=== PATIENT | female | born 1935 | race Two or more races ===

== ENCOUNTER 2025-03-24 11:51 | Inpatient (IN) | payer MEDICARE, OTHER ==
[~2025-03-24] VITALS: Ht 162.6 cm; Wt 74.0 kg
--- NOTE | 2025-03-24 12:16 | ED.PDOC ---
HPI (NEURO) HPI Comments 89y F who presents to the ED via EMS for chief complaint of generalized weakness. Per EMS, pt was called after noticing pt has been having increased weakness and malaise for the past few days. Family has noted pt has also been having increased falls over the past 2 days and pt evaluated. Pt otherwise has noted history of advanced dementia and EMS noted pt is currently taking abx for current UTI. EMS states pt has noted weakness and bruising to the L shoulder and L forearm. Pt in the ED, is otherwise ax0x1 in the ED. Pt denies any other symptoms at this time. Chief Complaint: General Weakness Time Seen by MD: 12:11 Primary Care Provider: CASPER Reviewed Notes: Nurses Notes, Funeral Car Driver Notes, Medications, Allergies (NKDA) Information Source: Patient, Emergency Med Personnel Mode of Arrival: EMS Brought in by: EMS Severity: Moderate Dizziness/Weakness Severity: Does not affect activitie Headache Severity: Moderate Timing: Hours Duration: Since onset Prehospital treatment: None Weakness Location: Generalized Onset: At rest Circumstances: Recent stress Symptoms: Weakness History of: Hypertension, Other (dementia) Modifying factors: Nothing Associated Signs and Symptoms: Weakness Past Medical History PAST MEDICAL HISTORY: HTN Past Medical History (Other): dementia Surgical History: Denies all surgeries 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 Family History Family History: Unknown Social History Smoker: Non-Smoker Alcohol: Denies ETOH Use Drugs: Denies Drug Use Lives In: Home Constitutional: reports: malaise, weakness; denies: chills, diaphoresis, fatigue, fever, sweats, others EENTM: denies: blurred vision, double vision, ear bleeding, ear discharge, ear drainage, ear pain, ear ringing, eye pain, eye redness, hearing loss, mouth pain, mouth swelling, nasal discharge, nose bleeding, nose congestion, nose pain, photophobia, tearing, throat pain, throat swelling, voice changes, others Respiratory: denies: cough, hemoptysis, orthopnea, SOB at rest, shortness of breath, SOB with excertion, stridor, wheezing, others Cardiovascular: denies: chest pain, dizzy spells, diaphoresis, Dyspnea on exertion, edema, irregular heart beat, left arm pain, lightheadedness, palpitations, PND, syncope, others Gastrointestinal: denies: abdomen distended, abdominal pain, blood streaked bowels, constipated, diarrhea, dysphagia, difficulty swallowing, hematemesis, melena, nausea, poor appetite, poor fluid intake, rectal bleeding, rectal pain, vomiting, others Genitourinary: denies: abnormal vagina bleeding, burning, dyspareunia, dysuria, flank pain, frequency, hematuria, incontinence, pain, , vagina discharge, urgency, others Neurological: denies: dizziness, fainting, headache, left sided numbness, left sided weakness, numbness, paresthesia, pre-existing deficit, right sided numbness, right sided weakness, seizure, speech problems, tingling, tremors, weakness, others Musculoskeletal: reports: joint pain (L arm and shoulder), joint swelling; denies: back pain, gout, muscle pain, muscle stiffness, neck pain, others Integumetry: denies: bruises, change in color, change in hair/nails, dryness, laceration, lesions, lumps, rash, wounds, others Allergic/Immunocompromised: denies: Difficulty Healing, Frequent Infections, Hives, Itching, others Hematologic/Lymphatic: denies: anemia, blood clots, easy bleeding, easy bruising, swollen glands, others Endocrine: denies: excessive hunger, excessive sweating, excessive thirst, excessive urination, flushing, intolerance to cold, intolerance to heat, unexplained weight gain, unexplained weight loss, others Psychiatric: denies: anxiety, bipolar disorder, depression, hopeless, panic disorder, schizophrenia, sleepless, suicidal, others Unable to Obtain due to: Dementia All Other Systems: Reviewed and Negative Physical Exam General Appearance: Moderate Distress HEENT: Normal ENT Inspection, Pharynx Normal, TMs Normal Neck: Full Range of Motion, Non-Tender, Normal, Normal Inspection Respiratory: Chest Non-Tender, Lungs Clear, No Accessory Muscle Use, No Respiratory Distress, Normal Breath Sounds Cardiovascular: No Edema, No JVD, No Murmur, No Gallop, Normal Peripheral Pulses, Regular Rate/Rhythm Breast Exam: Deferred Gastrointestinal: No Organomegaly, Non Tender, No Pulsatile Mass, Normal Bowel Sounds, Soft Genitalia: Deferred Pelvic: Deferred Rectal: Deferred Extremities: No calf tenderness, Normal capillary refill, No pedal edema, Other (Left shoulder with deformity consistent with possible dislocation) Musculoskeletal : Apperance: Normal Neurologic: Alert, director skills II-XII nml as Tested, Motor Weakness, No Sensory Deficits Cerebellar Function: Unable to Test Reflexes: Normal Skin: Dry, Normal Color, Warm Lymphatic: No Adenopathy Was a procedure done? Was a procedure done?: No Differential Diagnosis (SZ) Seizure: N/A General Weakness: Anemia, Dehydration, Electrolyte imbalance, Encephalopathy, Hypoglycemia, Hypotension, TIA, Other (UTI, history of dementia, ) Headache: Closed Head Injury X-Ray, Labs, Meds, VS Vital Signs Date Time Temp Pulse Resp B/P (MAP) Pulse Ox O2 Delivery O2 Flow Rate FiO2 03/24/25 15:05 98.1 78 13 161/49 (86) 97 98.1 03/24/25 14:35 82 19 180/60 (100) 93 03/24/25 14:06 83 16 94 2.0 28 93 24 94 88 96 03/24/25 12:46 83 20 92 Room Air* 0 21 03/24/25 12:44 98.0 83 13 154/58 (90) 93 98.0 03/24/25 11:58 97.1 85 16 157/72 (100) 95 97.1 03/24/25 11:53 85 Lab Test 03/24/25 13:10 Range/Units White Blood Count 8.3 4.4-10.8 10^3/uL Red Blood Count 4.44 4.0-5.20 10^6/uL Hemoglobin 13.1 12.2-16.2 g/dL Hematocrit 39.0 36.0-46.0 % Mean Corpuscular Volume 87.8 80.0-100.0 fL Mean Corpuscular Hemoglobin 29.4 28.0-32.0 pg Mean Corpuscular Hemoglobin Concent 33.5 32.0-36.0 g/dL Red Cell Distribution Width 13.8 11.8-14.3 % Platelet Count 207 140-450 10^3/uL Mean Platelet Volume 7.0 6.9-10.8 fL Neutrophils (%) (Auto) 83.3 H 37.0-80.0 % Lymphocytes (%) (Auto) 13.6 10.0-50.0 % Monocytes (%) (Auto) 2.9 0.0-12.0 % Eosinophils (%) (Auto) 0.0 0.0-7.0 % Basophils (%) (Auto) 0.2 0.0-2.0 % Neutrophils # (Auto) 6.9 1.6-8.6 10 ^3/uL Lymphocytes # (Auto) 1.1 0.4-5.4 10 ^3/uL Monocytes # (Auto) 0.2 0-1.3 10 ^3/uL Eosinophils # (Auto) 0 0-0.8 10 ^3/uL Basophils # (Auto) 0 0-0.2 10 ^3/uL Nucleated Red Blood Cells 0.0 % Sodium Level 141 136-145 mmol/L Potassium Level 4.2 3.5-5.1 mmol/L Chloride Level 109 H 98-107 mmol/L Carbon Dioxide Level 21 20-31 mmol/L Anion Gap 11 5-15 Blood Urea Nitrogen 17 9-23 mg/dL Creatinine 1.03 H 0.550-1.02 mg/dL Glomerular Filtration Rate Calc 53 >90 mL/min BUN/Creatinine Ratio 16.5 10.0-20.0 Serum Glucose 154 H 74-106 mg/dL Lactic Acid Level 0.7 0.4-2.0 mmol/L Calcium Level 9.9 8.7-10.4 mg/dL Current Medications Medications (Trade) Dose Ordered Sig/Manasa Route Start Time Stop Time Status Last Admin Midazolam HCl (Versed Injection) 2 mg ONCE ONCE IV 03/24/25 12:45 03/24/25 12:46 DC 03/24/25 14:27 Midazolam HCl (Versed Injection) 2 mg ONCE ONCE IV 03/24/25 14:30 03/24/25 14:31 DC 03/24/25 14:27 Etomidate 10 mg ONCE ONCE IV 03/24/25 14:30 03/24/25 14:31 DC 03/24/25 14:28 CT HEAD WITHOUT CONTRAST IMPRESSION: No acute intracranial abnormality. TECHNIQUE: XY L SHOULDER 2+ VIEW XRAY FINDINGS/IMPRESSION: : Osteopenia. Anterior joint dislocation. Possible Hill-Sachs fracture of the posterolateral humeral head. TECHNIQUE: XY L FOREARM XRAY FINDINGS/IMPRESSION: : There is no evidence of acute fracture or dislocation. Soft-tissue edema in the distal forearm. An IV Hep-Lock was established Initially we tried to reduce the shoulder ourselves. The patient was given etomidate 10 mg IV push The patient was also given Versed 2 mg IV push We did repeat another dose of Versed. Despite our effort to her unable to reduce the left shoulder The patient's CBC and chemistry panel are within normal limits The patient is being admitted with a diagnosis of generalized weakness and multiple falls as well as a left shoulder dislocation The diagnosis is also autonomic dysfunction We contacted the orthopedic surgeon and they are coming to consult on this patient We contacted [facility] and they did give us an authorization number of [id number] We spoke with Dr. Irving who is the person that gave us the authorization at [facility] and they do agree that the patient is unstable for transfer secondary to the on reduced shoulder at this time. Images Reviewed?: Images reviewed and evaluated by me Time of 1ST Reevaluation: 12:40 Reevaluation 1ST: Unchanged Patient Education/Counseling: Diagnosis, Treatment, Prognosis Family Education/Counseling: Diagnosis, Treatment, Prognosis Departure 1 Departure Time of Disposition: 15:58 Impression: Primary Impression: Multiple falls Additional Impressions: Generalized weakness Dislocation of left shoulder joint Qualified Codes: S43.005A - Unspecified dislocation of left shoulder joint, initial encounter Disposition: ADMITTED INPATIENT Condition: Fair Critical Care Note Critical Care Time?: No Stability Stability form required: Yes Unstable for transfer: ED Physician Assesment (Clinical assesment) Heart Score Heart Score: Heart Score Response (Comments) Value History N/A 0 EKG N/A 0 Age N/A 0 Risk Factors N/A 0 Troponin N/A 0 Total 0 I personally scribed for AVELINO ISAAC MD (PIOTR) on 03/24/25 at 12:16. Electronically submitted by Reshma Vuong ([email or web address]). I personally scribed for AVELINO ISAAC MD (PIOTR) on 03/24/25 at 13:31. Electronically submitted by Reshma Vuong ([email or web address]). AVELINO ISAAC MD Mar 24, 2025 12:16
--- NOTE | 2025-03-24 12:32 | DVH ---
CLINICAL INDICATION: fall, trauma, pain TECHNIQUE: XY L SHOULDER 2+ VIEW XRAY Comparison: None FINDINGS/IMPRESSION: : Osteopenia. Anterior joint dislocation. Possible Hill-Sachs fracture of the posterolateral humeral head.
--- NOTE | 2025-03-24 12:45 | DVH ---
CLINICAL INDICATION: fall, trauma, pain TECHNIQUE: XY L FOREARM XRAY Comparison: None FINDINGS/IMPRESSION: : There is no evidence of acute fracture or dislocation. Soft-tissue edema in the distal forearm.
[2025-03-24 12:46] VITALS: PULSE 83; RESP 20; O2SAT 92
--- NOTE | 2025-03-24 12:56 | DVH ---
CT HEAD WITHOUT CONTRAST INDICATION: fall EXAM DATE: 03/24/2025 12:08 PM COMPARISON: None RADIATION DOSE: CTDIvol: 57.82 mGy, DLP: 1023.79 mGy*cm PROCEDURE: CT scans of the head were obtained from the vertex to the skull base. Sagittal and coronal reconstructions were provided. All CT scans at this medical facility are performed using dose modulation techniques as appropriate t o a performed exam including the following: Automated exposure control was utilized; adjustment of th e MA and/or KV according to patient size; and use of iterative reconstruction technique. FINDINGS: There is sulcal and ventricular prominence. The brainshows normal morphology and ricketts-whi te matter differentiation, without intracranial hemorrhage, extra-axial fluid collection, mass effect or acute large vessel infarct. The ventricles are normal in size. The basal cisterns are patent. The skull and visible facial bones are intact. The paranasal sinuses, mastoid air cells and middle ear c avities are well-aerated. The soft tissues of the scalp are unremarkable. IMPRESSION: No acute intracranial abnormality.
[2025-03-24 13:22] LABS: Basophils # (auto) 0 10 ^3/uL (0-0.2); Basophils % (auto) 0.2 % (0.0-2.0); Eosinophils # (auto) 0 10 ^3/uL (0-0.8); Hemoglobin 13.1 g/dL (12.2-16.2); Lymphocytes # (auto) 1.1 10 ^3/uL (0.4-5.4); Lymphocytes % (auto) 13.6 % (10.0-50.0); Mean Corpuscular Hemoglobin 29.4 pg (28.0-32.0); Mean Corpuscular Hgb Conc. 33.5 g/dL (32.0-36.0); Mean Corpuscular Volume 87.8 fL (80.0-100.0); Monocytes # (auto) 0.2 10 ^3/uL (0-1.3); Monocytes % (auto) 2.9 % (0.0-12.0); Neutrophils # (auto) 6.9 10 ^3/uL (1.6-8.6); Neutrophils % (auto) 83.3 % (37.0-80.0); Platelet Count (auto) 207 10^3/uL (140-450); Red Blood Cells 4.44 10^6/uL (4.0-5.20); Red Cell Distribution Width 13.8 % (11.8-14.3); White Blood Cell 8.3 10^3/uL (4.4-10.8)
[2025-03-24 13:29] LABS: Potassium 4.2 mmol/L (3.5-5.1); Sodium 141 mmol/L (136-145)
[2025-03-24 13:30] LABS: Anion Gap 11 (5-15); Calcium 9.9 mg/dL (8.7-10.4); Carbon Dioxide 21 mmol/L (20-31)
[2025-03-24 13:35] LABS: BUN/Creatinine Ratio 16.5 (10.0-20.0); Blood Urea Nitrogen 17 mg/dL (9-23); Chloride 109 mmol/L (98-107); Glucose 154 mg/dL (74-106)
[2025-03-24] MEDS: MIDAZOLAM HCL 2MG/2ML 2ml VIAL (1mg/ml) ONE (14:26)
[2025-03-24] MEDS: ETOMIDATE (2MG/ML) 20ML VIAL IV ONE ×2 (14:26→14:28)
[2025-03-24] MEDS: MIDAZOLAM HCL 2MG/2ML 2ml VIAL (1mg/ml) IV ONE ×2 (14:27)
[2025-03-24] MEDS: LIDOCAINE 2%HCL (LOCAL ANESTH.) INJ 10ml MDV ONE (16:44)
[2025-03-24] MEDS: LIDOCAINE 2%HCL (LOCAL ANESTH.) INJ 10ml MDV IJ ONE (17:22)
--- NOTE | 2025-03-24 17:39 | ECG ---
[facility] Test Date: 2025-03-24 Test Time: 11:53:45 Pat Name: CORINNA GONZALEZ Department: ED Room: 0277 Gender: F Document Review Specialist: SHANNON : 1935 Requested By: EMERGENCY EMERGENCY Order Number: [id number] Reading MD: Arnold Bautista Measurements Intervals Carlock Rate: 85 P: 38 MI: 175 QRS: 11 QRSD: 105 T: 59 QT: 394 QTc: 469 Interpretive Statements Sinus rhythm Electronically Signed On 03-25-2025 9:34:48 PDT by Arnold Bautista Please click the below link to view image of tracing.
[2025-03-24] MEDS: ENOXAPARIN SOD 40 MG/0.4 ML SYRINGE SC SCH (18:00)
[2025-03-24] MEDS ORDERED: ONDANSETRON HCL 4 MG/2 ML VIAL IV PRN (18:00)
[2025-03-24] MEDS ORDERED: NITROGLYCERIN 0.4 MG SL TAB SL PRN (18:00)
[2025-03-24] MEDS: SODIUM CHLORIDE 0.9% 1,000 ML IV SCH (18:00)
[2025-03-24] MEDS ORDERED: BACTRIM 5MG/KG Q8HR PER RX 10 ML IV SCH (18:00)
[2025-03-24] MEDS ORDERED: DOCUSATE SOD 100 MG CAP PO PRN (18:00)
--- NOTE | 2025-03-24 18:05 | DVHHP2 ---
History of Present Illness Reason for Visit: weakness and fall History of Present Illness 89-year-old female with a history of dementia and hypertension presents to the ED with her granddaughter for evaluation of left shoulder pain following two separate fall events. Per granddaughter, the patient was found on the floor on Saturday and again between 5:00 AM and 10:00 AM today. On the most recent fall, she attempted to assist the patient who complained of left shoulder pain and curled into a ball. EMS was called and brought her in.Patient has had recent changes in mental status and increased wandering behavior, per granddaughter. She was recently prescribed a 2-week course of Bactrim DS for a urinary tract infection, with one week completed. No known surgical history. In the ED, ortho PA was consulted. Attempt at shoulder reduction was made but unsuccessful. No chest pain, shortness of breath, or other systemic symptoms noted at this time.ED Data Reviewed: CBC: WNL BMP: Creatinine 1.3, glucose 154 Lactate: 0.7 CT Brain: No acute findings Left Shoulder X-ray: Anterior glenohumeral dislocation, no fracture, osteopenia, soft tissue swelling Ortho at bedside, attempted closed reduction, will admit for syncope workup Past Medical History See HPI above Past Surgical History See HPI above Family History Reviewed, non-contributory to the management of this case. Past Social History The patient lives at home, denies smoking, alcohol or illicit drugs abuse. Review of Systems Constitutional: No: Fever, Chills, Sweats, Weakness, Malaise, Other Eyes: No: Pain, Vision change, Conjunctivae inflammation, Eyelid inflammation, Other, Redness ENT: No: Ear pain, Ear discharge, Nose pain, Nose discharge, Nose congestion, Mouth pain, Mouth swelling, Throat pain, Throat swelling, Other Respiratory: No: Cough, Dry, Shortness of breath, SOB with excertion, Wheezing, Hemoptysis, Pleuritic Pain, Sputum, Wheezing, Other Cardiovascular: No: Chest Pain, Palpitations, Orthopnea, Paroxysmal Noc. Dyspnea, Edema, Lt Headedness, Other Gastrointestinal: No: Nausea, Vomiting, Abdominal Pain, Diarrhea, Constipation, Melena, Hematochezia, Other Genitourinary: No Dysuria, No Frequency, No Incontinence, No Hematuria, No Retention, No Other Musculoskeletal: other (left shoulder pain); No: neck pain, shoulder pain, arm pain, back pain, hand pain, leg pain, foot pain Skin: No: Rash, Lesions, Jaundice, Bruising, Other Neurological: Other (syncope); No: Weakness, Numbness, Incoordination, Change in speech, Confusion, Seizures Allergies: Coded Allergies: NO KNOWN ALLERGIES (Unverified , 03/24/25) Exam Vital Signs Vital Signs Date Time Temp Pulse Resp B/P (MAP) Pulse Ox O2 Delivery O2 Flow Rate FiO2 03/24/25 15:05 98.1 78 13 161/49 (86) 97 98.1 03/24/25 14:06 2.0 28 03/24/25 12:46 Room Air* General Appearance: Alert, Oriented X3, Cooperative, No acute distress HEENT: Atraumatic, PERRLA, EOMI, Mucous membr. moist/pink Respiratory: Clear to auscultation, Normal air movement Cardiovascular: Regular rate, Normal S1, Normal S2, No murmurs Abdominal: Normal bowel sounds, Soft, No tenderness, No hepatospenomegaly, No masses Extremities: No clubbing, No cyanosis, No edema, Normal pulses, Other (left shoulder with dislocation, no open wound seen) Neuro: Other (does carreno equally strong, left arm with weakness ) Psych/Mental Status: Mental status NL, Mood NL Labs/Xrays CT scan of the brain unremarkable X-ray of the shoulder showed osteopenia anterior drawer dislocation no fracture of the humeral head I reviewed labs, imaging CT scan abdomen pelvis, EKG and all diagnostic studies on this patient from ED records and the medical chart Labs Test 03/24/25 13:10 Range/Units White Blood Count 8.3 4.4-10.8 10^3/uL Red Blood Count 4.44 4.0-5.20 10^6/uL Hemoglobin 13.1 12.2-16.2 g/dL Hematocrit 39.0 36.0-46.0 % Mean Corpuscular Volume 87.8 80.0-100.0 fL Mean Corpuscular Hemoglobin 29.4 28.0-32.0 pg Mean Corpuscular Hemoglobin Concent 33.5 32.0-36.0 g/dL Red Cell Distribution Width 13.8 11.8-14.3 % Platelet Count 207 140-450 10^3/uL Mean Platelet Volume 7.0 6.9-10.8 fL Neutrophils (%) (Auto) 83.3 H 37.0-80.0 % Lymphocytes (%) (Auto) 13.6 10.0-50.0 % Monocytes (%) (Auto) 2.9 0.0-12.0 % Eosinophils (%) (Auto) 0.0 0.0-7.0 % Basophils (%) (Auto) 0.2 0.0-2.0 % Neutrophils # (Auto) 6.9 1.6-8.6 10 ^3/uL Lymphocytes # (Auto) 1.1 0.4-5.4 10 ^3/uL Monocytes # (Auto) 0.2 0-1.3 10 ^3/uL Eosinophils # (Auto) 0 0-0.8 10 ^3/uL Basophils # (Auto) 0 0-0.2 10 ^3/uL Nucleated Red Blood Cells 0.0 % Sodium Level 141 136-145 mmol/L Potassium Level 4.2 3.5-5.1 mmol/L Chloride Level 109 H 98-107 mmol/L Carbon Dioxide Level 21 20-31 mmol/L Anion Gap 11 5-15 Blood Urea Nitrogen 17 9-23 mg/dL Creatinine 1.03 H 0.550-1.02 mg/dL Glomerular Filtration Rate Calc 53 >90 mL/min BUN/Creatinine Ratio 16.5 10.0-20.0 Serum Glucose 154 H 74-106 mg/dL Lactic Acid Level 0.7 0.4-2.0 mmol/L Calcium Level 9.9 8.7-10.4 mg/dL Assessment/Plan Assessment/Plan acute syncope causing fall CT the brain is negative ordered echocardiogram fu results ordered carotid Doppler fu results ordered Orthostatic vital signs ordered IV fluids Fall precautions ordered PT eval and treat ordered trop fu results ordered ua fu results ordered tsh fu results acute left shoulder dislocation and comminuted humeral head fracture found on imaging ortho at beside to do reduction monitor for neuro deficits and circulation compromise acute cystitis found outside pt was started on bactrim ds yesterday will cont bactrim iv for now ordered urine culture and ua fu results acute mild gisselle ordered ivf for now chronic problems dementia htn fen/ppx diet ivf for now scd lovenox no gi ppx since no hx of gerds or gi bleed plan admit to medicine spoke with daughter phone number [phone] Plan discussed with: Patient Date of Service: Mar 24, 2025 Billing Provider: BALAJI BUCKLEY DNP Common Visit Codes: [id number] INP/OBS CARE (HIGH) BALAJI BUCKLEY DNP Mar 24, 2025 18:05
--- NOTE | 2025-03-24 18:20 | DVH ---
EXAM: XR Left Shoulder Complete, 2 or More Views CLINICAL INDICATION: left shoulder reduction TECHNIQUE: Two or more views of the left shoulder. COMPARISON: XY L SHOULDER 2+ VIEW XRAY on DOS: 03/24/25 FINDINGS: BONES/JOINTS: Anterior-inferior dislocation of the humeral head from the glenohumeral joint. Commi nuted displaced fracture of the greater tuberosity. SOFT TISSUES: Soft tissue swelling. OTHER FINDINGS: . IMPRESSION: 1. Anterior-inferior dislocation of the humeral head from the glenohumeral joint. 2. Comminuted displaced fracture of the greater tuberosity.
[2025-03-24] MEDS: LIDOCAINE 2% (LOCAL ANESTH.) PF 5ml SDV IJ ONE (18:30)
--- NOTE | 2025-03-24 19:18 | DVHINCON2 ---
Consult Note Consult Consult Note HISTORY OF PRESENT ILLNESS: 84-year-old female with a past medical history of dementia and hypertension presented to the Emergency Department after a ground-level fall. Imaging revealed an anterior-inferior dislocation of the left shoulder with an associated Hill-Sachs impaction fracture. The orthopedic service was consulted for reduction management. Patient was accompanied by her daughter, who provided verbal consent for bedside reduction. totoal of 7 mL of 2% lidocaine without epinephrine was administered (in 2 attampts 4ml and then 3 ml) via intra-articular injection to the left glenohumeral joint. An initial reduction attempt was performed with gentle traction and rotation. A palpable clunk was appreciated, suggesting reduction; however, post-reduction radiographs confirmed persistent dislocation. A second reduction attempt using gentle traction and circumduction was also unsuccessful. The left upper extremity was then immobilized in a sling, and the patient was admitted for operative management. --- PAST MEDICAL HISTORY: Dementia Hypertension MEDICATIONS: [To be filled from EMR] ALLERGIES: [To be filled from EMR] --- PHYSICAL EXAM: General: Elderly female, pleasant, accompanied by daughter. Neurovascular: Left upper extremity is grossly neurovascularly intact. Left Shoulder: Obvious deformity noted. Limited ROM due to dislocation. No overlying skin breakdown. Forward flexion, abduction, internal/external rotation limited by pain but present. No signs of skin tenting, open injury, or compartment syndrome. --- IMAGING REVIEW: Pre-reduction X-ray: Anterior-inferior glenohumeral dislocation with Hill-Sachs lesion. Post-reduction X-ray: Persistent dislocation. --- ASSESSMENT: 1. Anterior-inferior dislocation of the left shoulder with Hill-Sachs lesion, failed closed reduction. 2. History of dementia, hypertension. --- PLAN: RECOMENDATION TO ER Admit patient under inpatient status for surgical management. OBTAIN CONSENT FOR Closed reduction under sedation/anesthesia in the OR by the on-call orthopedic surgeon Dr. Sosa. Patient to remain NPO after midnight. Shoulder immobilized in sling. Continue neurovascular checks. Monitor for signs of increased pain, swelling, or neurovascular compromise. Plan discussed with: Daughter, Other (bedside ER Nurse) Visit Coding Surgery Date of Service if different f: Mar 24, 2025 Billing Provider: SARAH HAMMER Surgery Visit Codes: 89630 - INP CONSULT <40 MIN SARAH HAMMER Mar 24, 2025 19:18
--- NOTE | 2025-03-24 19:21 | DVH ---
CLINICAL INDICATION: left shoulder reduction TECHNIQUE: 2 radiographic views of the left shoulder were obtained. Comparison: XY L SHOULDER 2+ VIEW XRAY on DOS: 03/24/25, XY L SHOULDER 2+ VIEW XRAY on DOS: 03/24/25 FINDINGS/IMPRESSION: Improved shoulder dislocation. Fracture of the greater tuberosity visualized.
[2025-03-24 20:18] LABS: Urine Bacteria None Seen /hpf (None Seen)
[2025-03-24] MEDS ORDERED: HALOPERIDOL LACTATE 5 MG/ML INJ VIAL IM PRN (20:45)
[2025-03-24 21:29] LABS: Urine Blood Negative /uL (Negative); Urine Clarity Clear (Clear); Urine Color Light-Yellow (Yellow); Urine Hyaline Cast FEW /lpf (0 - 2); Urine Protein, UAD Negative (Negative); Urine Specific Gravity 1.018 (1.001-1.035); Urine Squamous Epithelial Cell FEW /hpf (<5); Urine Urobilinogen Normal (Negative); Urine WBC < 1 /HPF (0-5); Urine pH 5.5 (5.0-9.0)
[2025-03-24] MEDS: cefTRIAXone 1GM/50ML D5W 50 ML IV SCH (21:59)
--- NOTE | 2025-03-24 22:00 | DVH ---
US CAROTID DOPPLER CLINICAL INDICATION: eval for vascular occlusion with syncope TECHNIQUE: Multiple grayscale, color Doppler and spectral Doppler ultrasound images were obtained thr oughout both carotid systems. COMPARISON: None FINDINGS: RIGHT: CCA PSV: 104 cm/s ECA PSV: 118 cm/s ICA PSV: 93 cm/s ICA EDV: 12 cm/s ICA/CCA Ratio: 0.9 Vertebral artery: Patent, antegrade flow. Grayscale images demonstrate mild calcified atherosclerotic plaque in the carotid bifurcation and the internal carotid artery. No visible stenosis ICA or CCA. Spectral analysis demonstrates no hemodyna mically significant CCA or ICA stenosis. LEFT: CCA PSV: 89 cm/s ECA PSV: 216 cm/s ICA PSV: 116 cm/s ICA EDV: 23 cm/s ICA/CCA Ratio: 1.3 Vertebral artery: Patent, antegrade flow. Grayscale images demonstrate mild calcified atherosclerotic plaque in the carotid bifurcation and int ernal carotid artery. There is no visible stenosis of the ICA or CCA. Spectral analysis demonstrates no hemodynamically significant CCA or ICA stenosis. IMPRESSION: No evidence of hemodynamically significant CCA or ICA stenosis.
[2025-03-24 23:21] VITALS: BP 144/44; PULSE 82; RESP 18; TEMP 98.7; O2SAT 98
[2025-03-24] MEDS ORDERED: SERT25TA84 PO (23:52)
[2025-03-24] MEDS ORDERED: AMLO1TAB23 PO (23:52)
[2025-03-24] MEDS ORDERED: SERT100T PO (23:52)
[2025-03-24] MEDS ORDERED: TRAZ-228 PO (23:52)
[2025-03-24] MEDS ORDERED: HYDR12.59 PO (23:52)
[2025-03-24] MEDS ORDERED: LOSA-535 PO (23:52)
[2025-03-24] MEDS ORDERED: BACDST PO (23:54)
[2025-03-25] VITALS (8 sets, daily range): BP systolic 109–166; BP diastolic 49–81; PULSE 59–88; RESP 17–20; TEMP 97.6–99.1; O2SAT 92–97
[2025-03-25 05:59] LABS: Basophils # (auto) 0 10 ^3/uL (0-0.2); Basophils % (auto) 0.3 % (0.0-2.0); Eosinophils # (auto) 0 10 ^3/uL (0-0.8); Eosinophils % (auto) 0.2 % (0.0-7.0); Hematocrit 35.5 % (36.0-46.0); Hemoglobin 11.9 g/dL (12.2-16.2); Lymphocytes # (auto) 1.1 10 ^3/uL (0.4-5.4); Lymphocytes % (auto) 16.6 % (10.0-50.0); Mean Corpuscular Hemoglobin 29.4 pg (28.0-32.0); Mean Corpuscular Hgb Conc. 33.5 g/dL (32.0-36.0); Mean Corpuscular Volume 87.7 fL (80.0-100.0); Monocytes # (auto) 0.6 10 ^3/uL (0-1.3); Monocytes % (auto) 8.9 % (0.0-12.0); Neutrophils # (auto) 4.7 10 ^3/uL (1.6-8.6); Nucleated Red Blood Cells % 0.2 %; Platelet Count (auto) 193 10^3/uL (140-450); Red Blood Cells 4.05 10^6/uL (4.0-5.20); Red Cell Distribution Width 14.3 % (11.8-14.3); White Blood Cell 6.4 10^3/uL (4.4-10.8)
[2025-03-25 06:27] LABS: Alanine Aminotransferase 18 U/L (7-40); Albumin 4.1 g/dL (3.2-4.8); Alkaline Phosphatase 57 U/L (46-116); Anion Gap 11 (5-15); Aspartate Aminotransferase 31 U/L (13-40); BUN/Creatinine Ratio 13.8 (10.0-20.0); Blood Urea Nitrogen 12 mg/dL (9-23); Calcium 9.4 mg/dL (8.7-10.4); Potassium 3.9 mmol/L (3.5-5.1); Sodium 141 mmol/L (136-145); Total Protein 6.1 g/dL (5.7-8.2)
[2025-03-25 06:28] LABS: Bilirubin, Total 1.5 mg/dL (0.2-1.0); Carbon Dioxide 19 mmol/L (20-31); Chloride 111 mmol/L (98-107); Glucose 116 mg/dL (74-106)
[2025-03-25] MEDS ORDERED: ACETAMINOPHEN 325 MG TAB PO PRN (10:45)
[2025-03-25] MEDS ORDERED: ONDANSETRON HCL 4 MG/2 ML VIAL IV PRN (10:45)
[2025-03-25] MEDS ORDERED: HYDROcodone-ACET 5/325MG TAB PO PRN (10:45)
--- NOTE | 2025-03-25 10:47 | DVHPN2 ---
Progress Note Date Seen: Mar 25, 2025 Medical Necessity Reason Pt with a Central, PICC or Fol: No Subjective Patient reports: No new complaints Review of Systems: HEENT:Normal, CVS:Normal, RESPIRATORY:Normal, GI:Normal, :Normal, MSK:Normal, NEURO:Normal Objective vital signs Vital Sign Date Time Temp Pulse Resp B/P (MAP) Pulse Ox O2 Delivery O2 Flow Rate FiO2 03/25/25 09:15 98.0 81 20 166/49 (88) 97 98.0 03/25/25 08:00 Nasal Cannula* 2 28 Total Intake and Output 03/24/25 03/24/25 03/25/25 15:00 23:00 07:00 Intake Total 50 ml 200 ml Output Total 800 ml Balance 50 ml -600 ml medications Current Medications Medications Dose Ordered Sig/Manasa Route Start Time Stop Time Status Last Admin Dose Admin Sodium Chloride 1,000 ml @ 70 mls/hr [id number] IV 03/24/25 18:00 03/24/25 18:00 70 MLS/HR Ondansetron HCl 4 mg Q4HP PRN IV 03/24/25 18:00 Docusate Sodium 100 mg BIDPRN PRN PO 03/24/25 18:00 Morphine Sulfate 2 mg Q4HPRN PRN IV 03/24/25 18:00 Enoxaparin Sodium 40 mg DAILY@1800 SC 03/24/25 18:00 03/24/25 18:00 40 MG Nitroglycerin 0.4 mg Q5MINP PRN SL 03/24/25 18:00 Ceftriaxone Sodium 50 ml @ 100 mls/hr DAILY@09 IV 03/24/25 18:14 03/25/25 08:56 100 MLS/HR Haloperidol Lactate 5 mg [id number] PRN IM 03/24/25 20:45 Examination: GENERAL:Normal, HEENT:Normal, NECK:Normal, LUNGS:Normal, CVS:Normal, ABDOMEN:Normal, MSK:Normal, MSK:Abnormal (left shoulder sling), SKIN:Normal, NEURO:Normal, :Normal laboratory and microbiology Laboratory Tests 03/25/25 05:18 Test 03/25/25 05:18 Range/Units Serum Glucose 116 H 74-106 mg/dL Problem List/Assessment/Plan Problem List/Assessment/Plan #1 left shoulder dislocation: surg planned for today #2 dementia #3 htn: adjust meds #4 depression/anxiety advanced care planning- full code- time spent 19 mins Plan discussed with: Patient My Orders My Orders Orders - SIVA BARRETT MD Procedure Category Date Status Time Hydrocodone-Acet PHA 03/25/25 Verified 5/325mg Tab ([place] 10:45 Acetaminophen Tablet PHA 03/25/25 Verified (Tylenol Tablet) 10:45 Ondansetron Hcl PHA 03/25/25 Verified (Zofran) 10:45 Sertraline Hcl PHA 03/26/25 Verified (Zoloft) 10:00 Amlodipine Tablet PHA 03/25/25 Verified (Norvasc Tablet) 10:45 Date of Service: Mar 25, 2025 Billing Provider: SIVA BARRETT MD Common Visit Codes: [id number] INP/OBS CARE(HIGH) Secondary Visit Codes: [id number] CARE PLAN 30 MINUTES SIVA BARRETT MD Mar 25, 2025 10:47
--- NOTE | 2025-03-25 15:53 | DVHSR ---
APPROVED REPORT EXAM: LIMITED Two-dimensional and M-mode echocardiogram with Doppler and color Doppler. Blood Pressure: 147/81 mmHg INDICATION evaluate cardiac function and ef RISK FACTORS Obesity: Height: 5'4, Weight: 158 DIMENSIONS LVDd4.5 (3.8-5.7cm)LA (2D)4.7 (1.9-4.0cm)Aortic Root3.2 (2.0-3.7cm) LVDs2.8 (2.5-4.0cm)LA (MM) (1.9-4.0cm)Aortic Cusp Exc1.8 (1.5-2.0cm) EF (%) 55.0 (55-70%)Rt. Atrium (1.9-4.0cm)Asc. Aorta cm IVSd1.0 (0.7-1.1cm)RV (D) (1.8-2.4cm) PWd1.0 (0.7-1.1cm) Mitral Valve MitralMitral Stenosis E wave0.81m/sMV Mean GR.mmHg A wave1.45m/sMV Peak GR.mmHg E/A ratio0.62D MVAcm2 DECEL [id number] 1/2 Tim[place] Aortic Valve Aortic ValveAortic Stenosis V11.10m/Pernell Mean GR.5mmHg V21.54m/[place]ell Peak GR.9mmHg LVOT Diameter2.0 (1.8-2.4cm)Doppler AVA2.24cm2 Pulmonic Valve V21.28m/s Tricuspid Valve TR Velocity2.51m/s [id number] Other Information Technically limited study due to pt wearing sling on left arm unable to move arm and get on axis api cals. pt confused and grabbing probe. Conclusion lvef 55% by visual estimate normal rv function, RV enlarged left atrium enlarged no severe valve abnormaliteis noted
[2025-03-25] MEDS: SODIUM CHLORIDE 0.9% 1,000 ML IV SCH (17:02)
[2025-03-25] MEDS: amLODIPine BESYLATE 5 MG TAB PO ONE (17:10)
[2025-03-25] MEDS: traZODone HCL 50 MG TAB PO SCH (21:20)
[2025-03-26] VITALS (10 sets, daily range): BP systolic 116–167; BP diastolic 49–83; PULSE 69–90; RESP 13–93; TEMP 98.2–99.1; O2SAT 92–100
[2025-03-26] MEDS ORDERED: fentaNYL CITRATE 100 MCG/2 ML VL ONE (06:47)
[2025-03-26] MEDS ORDERED: PROPOFOL 10 MG/ML 20 ML IV ONE (06:47)
[2025-03-26 06:49] LABS: Basophils # (auto) 0 10 ^3/uL (0-0.2); Basophils % (auto) 0.2 % (0.0-2.0); Eosinophils # (auto) 0 10 ^3/uL (0-0.8); Eosinophils % (auto) 0.4 % (0.0-7.0); Hematocrit 36.4 % (36.0-46.0); Hemoglobin 12.1 g/dL (12.2-16.2); Lymphocytes # (auto) 1.1 10 ^3/uL (0.4-5.4); Lymphocytes % (auto) 16.1 % (10.0-50.0); Mean Corpuscular Hemoglobin 29.2 pg (28.0-32.0); Mean Corpuscular Hgb Conc. 33.3 g/dL (32.0-36.0); Mean Corpuscular Volume 87.9 fL (80.0-100.0); Monocytes # (auto) 0.6 10 ^3/uL (0-1.3); Monocytes % (auto) 8.5 % (0.0-12.0); Neutrophils # (auto) 5.2 10 ^3/uL (1.6-8.6); Neutrophils % (auto) 74.8 % (37.0-80.0); Nucleated Red Blood Cells % 0.1 %; Platelet Count (auto) 201 10^3/uL (140-450); Red Blood Cells 4.14 10^6/uL (4.0-5.20); Red Cell Distribution Width 13.9 % (11.8-14.3); White Blood Cell 6.9 10^3/uL (4.4-10.8)
[2025-03-26 07:17] LABS: Alanine Aminotransferase 15 U/L (7-40); Albumin 4.1 g/dL (3.2-4.8); Alkaline Phosphatase 58 U/L (46-116); Anion Gap 10 (5-15); Aspartate Aminotransferase 24 U/L (13-40); BUN/Creatinine Ratio 17.6 (10.0-20.0); Blood Urea Nitrogen 12 mg/dL (9-23); Calcium 9.5 mg/dL (8.7-10.4); Potassium 3.8 mmol/L (3.5-5.1); Sodium 141 mmol/L (136-145); Total Protein 6.3 g/dL (5.7-8.2)
[2025-03-26 07:22] LABS: Bilirubin, Total 1.3 mg/dL (0.2-1.0); Carbon Dioxide 20 mmol/L (20-31); Chloride 111 mmol/L (98-107); Glucose 117 mg/dL (74-106)
--- NOTE | 2025-03-26 07:30 | DVHOP2 ---
Operative Report - 2 Report Details Date: 03/26/25 Preop Diagnosis: Left shoulder fracture dislocation Postop Diagnosis: Left shoulder fracture dislocation Surgeon: Trung Poon MD Anesthesiologist: Brielle Anesthesia: General Consent: The patient was informed of the risks and benefits of the procedure. These include but are not limited to complications of anesthesia, postoperative infection, incomplete relief of symptoms, recurrence of symptoms, damage to blood vessels, nerves and tendons, deep venous thrombosis, pulmonary embolism and possible need for repeat surgery in the future. Complications: None Estimated Blood Loss: None Fluids: See anesthesia record Findings: Anterior dislocation with small greater tuberosity fragment left shoulder Indications for Surgery: Left shoulder dislocation Name of Procedure Performed Closed reduction left shoulder dislocation with C-arm fluoroscopy Procedure Details Procedure Details: Patient was brought to the operating room and placed on the table in the supine position. Patient was given general anesthetic. Surgical time-out was performed verifying patient, laterality, and procedure. I reduced the shoulder utilizing traction and rotation and stability verified with rotation under C- arm. Multiple views were obtained. The small greater tuberosity fracture reduced to a minimally displaced position. Patient was placed in shoulder immobilizer. Patient tolerated the procedure well was brought to recovery room in stable condition. Condition Stable Disposition Still a Patient TRUNG POON MD Mar 26, 2025 07:30
--- NOTE | 2025-03-26 07:33 | DVHPN2 ---
Progress Note Date Seen: Mar 26, 2025 Medical Necessity Reason Pt with a Central, PICC or Fol: No Objective vital signs Vital Sign Date Time Temp Pulse Resp B/P (MAP) Pulse Ox O2 Delivery O2 Flow Rate FiO2 03/26/25 05:00 99.0 90 19 156/70 (98) 97 99.0 03/25/25 20:00 Nasal Cannula* 2 28 Total Intake and Output 03/25/25 03/25/25 03/26/25 15:00 23:00 07:00 Intake Total 50 ml 25 ml 150 ml Output Total 1000 ml 800 ml Balance 50 ml -975 ml -650 ml medications Current Medications Medications Dose Ordered Sig/Manasa Route Start Time Stop Time Status Last Admin Dose Admin Docusate Sodium 100 mg BIDPRN PRN PO 03/24/25 18:00 Morphine Sulfate 2 mg Q4HPRN PRN IV 03/24/25 18:00 Nitroglycerin 0.4 mg Q5MINP PRN SL 03/24/25 18:00 Ceftriaxone Sodium 50 ml @ 100 mls/hr DAILY@09 IV 03/24/25 18:14 03/25/25 08:56 100 MLS/HR Acetaminophen/ Hydrocodone Bitart 1 tab Q6HPRN PRN PO 03/25/25 10:45 Acetaminophen 650 mg Q6HP PRN PO 03/25/25 10:45 Ondansetron HCl 4 mg Q6HPRN PRN IV 03/25/25 10:45 Sertraline HCl 100 mg DAILY PO 03/26/25 10:00 Amlodipine Besylate 10 mg DAILY PO 03/26/25 10:00 Trazodone HCl 100 mg HS PO 03/25/25 22:00 03/25/25 21:20 100 MG Sodium Chloride 1,000 ml @ 60 mls/hr [id number] IV 03/25/25 10:45 03/25/25 17:02 60 MLS/HR laboratory and microbiology Laboratory Tests 03/26/25 06:11 Test 03/26/25 06:11 Range/Units Serum Glucose 117 H 74-106 mg/dL Microbiology Date/Time Source Procedure Growth Status 03/24/25 13:10 Blood Blood Culture - Preliminary NO GROWTH AFTER 24 HOURS OF INCUBATION. Resulted Problem List/Assessment/Plan Problem List/Assessment/Plan Left shoulder fracture dislocation s/p closed reduction Plan: Maintain shoulder immobilizer. Patient will probably require transfer to alf due to severe dementia. Patient's noncompliance will put her at high risk for redislocation. Patient will need outpatient follow up with [facility]. Plan discussed with: Other My Orders My Orders Orders - JULIANNE POON MD Procedure Category Date Status Time Npo (Nothing By DIET 03/26/25 Transmitted Mouth) Diet Breakfast Date of Service: Mar 26, 2025 Billing Provider: JULIANNE POON MD Common Visit Codes: NOT BILLABLE JULIANNE POON MD Mar 26, 2025 07:33
[2025-03-26] MEDS: ONDANSETRON HCL 4 MG/2 ML VIAL IV ONE (07:45)
[2025-03-26] MEDS ORDERED: ACETAMINOPHEN IV 1000 MG/100ML (10MG/ML) IV PRN (07:45)
[2025-03-26] MEDS: SERTRALINE HCL 50 MG TAB PO SCH (09:05)
[2025-03-26] MEDS: amLODIPine BESYLATE 5 MG TAB PO SCH (09:05)
--- NOTE | 2025-03-26 09:50 | DVHPN2 ---
Subjective s/p OR reduction. pending SNF. resume home meds Changes from previous H/P or p: No Changes Eyes: No Pain, No Vision change, No Conjunctivae inflammation, No Eyelid inflammation, No Other, No Redness ENT: No Ear pain, No Ear discharge, No Nose pain, No Nose discharge, No Nose congestion, No Mouth pain, No Mouth swelling, No Throat pain, No Throat swelling, No Other Cardiovascular: No Chest Pain, No Palpitations, No Orthopnea, No Paroxysmal Noc. Dyspnea, No Edema, No Lt Headedness, No Other Respiratory: No Cough, No Dry, No Shortness of breath, No SOB with excertion, No Wheezing, No Hemoptysis, No Pleuritic Pain, No Sputum, No Other Gastrointestinal: No Nausea, No Vomiting, No Abdominal Pain, No Diarrhea, No Constipation, No Melena, No Hematochezia, No Other Genitourinary: No Dysuria, No Frequency, No Incontinence, No Hematuria, No Retention, No Other Musculoskeletal: other (left shoulder pain); No neck pain, No shoulder pain, No arm pain, No back pain, No hand pain, No leg pain, No foot pain Skin: No Rash, No Lesions, No Jaundice, No Bruising, No Other Objective Vitals Vital Signs Date Time Temp Pulse Resp B/P (MAP) Pulse Ox O2 Delivery O2 Flow Rate FiO2 03/26/25 09:05 116/83 03/26/25 08:30 98.2 84 20 92 98.2 03/26/25 08:10 Nasal Cannula 2.0 03/26/25 08:07 93 Intake/Output Intake and Output 03/26/25 07:00 Intake Total 275 ml Output Total 1800 ml Balance -1525 ml Intake Oral 175 ml IV Total 100 ml Output Urine Total 1800 ml # Bowel Movements 1 Medications Current Medications Medications Dose Ordered Sig/Manasa Route Start Time Stop Time Status Last Admin Dose Admin Docusate Sodium 100 mg BIDPRN PRN PO 03/24/25 18:00 Morphine Sulfate 2 mg Q4HPRN PRN IV 03/24/25 18:00 Nitroglycerin 0.4 mg Q5MINP PRN SL 03/24/25 18:00 Ceftriaxone Sodium 50 ml @ 100 mls/hr DAILY@09 IV 03/24/25 18:14 03/26/25 09:04 100 MLS/HR Acetaminophen/ Hydrocodone Bitart 1 tab Q6HPRN PRN PO 03/25/25 10:45 Acetaminophen 650 mg Q6HP PRN PO 03/25/25 10:45 Ondansetron HCl 4 mg Q6HPRN PRN IV 03/25/25 10:45 Sertraline HCl 100 mg DAILY PO 03/26/25 10:00 Amlodipine Besylate 10 mg DAILY PO 03/26/25 10:00 03/26/25 09:05 10 MG Trazodone HCl 100 mg HS PO 03/25/25 22:00 03/25/25 21:20 100 MG Sodium Chloride 1,000 ml @ 60 mls/hr [id number] IV 03/25/25 10:45 03/25/25 17:02 60 MLS/HR Laboratory Results Laboratory Tests 03/26/25 06:11 Chemistry Test 03/26/25 06:11 Albumin 4.1 g/dL (3.2-4.8) Calcium Level 9.5 mg/dL (8.7-10.4) Total Protein 6.3 g/dL (5.7-8.2) LFT Test 03/26/25 06:11 Alanine Aminotransferase (ALT) 15 U/L (7-40) Alkaline Phosphatase 58 U/L (46-116) Aspartate Amino Transferase (AST) 24 U/L (13-40) Total Bilirubin 1.3 mg/dL (0.2-1.0) H Urinalysis Test 03/24/25 20:17 Urine Color Light-yellow (Yellow) Urine Clarity Clear (Clear) Urine pH 5.5 (5.0-9.0) Urine Specific [place] 1.018 (1.001-1.035) Urine Protein Negative (Negative) Urine Ketones 1+ (Negative) H Urine Blood Negative /uL (Negative) Urine Nitrite Negative (Negative) Urine Bilirubin Negative (Negative) Urine Urobilinogen Normal mg/dL (Negative) Urine Leukocyte Esterase Negative /uL (Negative) Urine RBC 1 /hpf (0 - 4) Urine Microscopic WBC < 1 /HPF (0-5) Urine Squamous Epithelial Cells Few /hpf (<5) Urine Bacteria None seen /hpf (None Seen) Urine Hyaline Casts Few /lpf (0 - 2) Urine Glucose Normal mg/dL (Normal) Microbiology Microbiology Date/Time Source Procedure Growth Status 03/24/25 13:10 Blood Blood Culture - Preliminary NO GROWTH AFTER 24 HOURS OF INCUBATION. Resulted Assessment/Plan Assessment/Plan #1 left shoulder dislocation: s/p OR reduction #2 dementia: ss consult for snif #3 htn: adjust meds #4 depression/anxiety advanced care planning- full code- time spent 19 mins Plan discussed with: Patient My Orders Orders - CHARISSA LEIVA MD Procedure Category Date Status Time Incentive Spirometry ORDERS 03/26/25 Transmitted 09:47 Pt Request For Service PT 03/26/25 Transmitted 09:47 * Professor Of Communication And Writing CONS 03/26/25 Transmitted Consult Date of Service: Mar 26, 2025 Billing Provider: CHARISSA LEIVA MD Common Visit Codes: [id number] INP/OBS CARE(HIGH) CHARISSA LEIVA MD Mar 26, 2025 09:50
--- NOTE | 2025-03-26 15:14 | DVH ---
C-ARM FLUOROSCOPY: PROCEDURE: Closed reduction left shoulder. FLUOROSCOPY TIME: 12.3 seconds. DAP: 1.04 mgy FINDINGS: Spot intraoperative C arm radiographs demonstrating closed reduction left shoulder. IMPRESSION: Please refer to surgical report for detailed findings.
[2025-03-26] MEDS: MORPHINE SULFATE 4 MG/ML SYR/VIAL IV PRN (16:46)
[2025-03-27] VITALS (7 sets, daily range): BP systolic 121–168; BP diastolic 52–62; PULSE 76–86; RESP 15–20; TEMP 97.8–98.8; O2SAT 91–97
[2025-03-27 10:29] LABS: Basophils # (auto) 0 10 ^3/uL (0-0.2); Basophils % (auto) 0.3 % (0.0-2.0); Eosinophils # (auto) 0.1 10 ^3/uL (0-0.8); Eosinophils % (auto) 1.8 % (0.0-7.0); Hematocrit 36.2 % (36.0-46.0); Hemoglobin 12.2 g/dL (12.2-16.2); Lymphocytes # (auto) 1.1 10 ^3/uL (0.4-5.4); Mean Corpuscular Hemoglobin 29.8 pg (28.0-32.0); Mean Corpuscular Hgb Conc. 33.8 g/dL (32.0-36.0); Mean Corpuscular Volume 88.1 fL (80.0-100.0); Monocytes # (auto) 0.4 10 ^3/uL (0-1.3); Neutrophils # (auto) 3.7 10 ^3/uL (1.6-8.6); Neutrophils % (auto) 68.9 % (37.0-80.0); Nucleated Red Blood Cells % 0.2 %; Platelet Count (auto) 223 10^3/uL (140-450); Potassium 3.8 mmol/L (3.5-5.1); Red Blood Cells 4.11 10^6/uL (4.0-5.20); Red Cell Distribution Width 14.2 % (11.8-14.3); White Blood Cell 5.4 10^3/uL (4.4-10.8)
[2025-03-27 10:30] LABS: Anion Gap 10 (5-15); Carbon Dioxide 24 mmol/L (20-31)
[2025-03-27 10:31] LABS: Calcium 9.3 mg/dL (8.7-10.4)
[2025-03-27 10:36] LABS: BUN/Creatinine Ratio 21.3 (10.0-20.0); Blood Urea Nitrogen 13 mg/dL (9-23); Chloride 111 mmol/L (98-107); Glucose 122 mg/dL (74-106); Sodium 145 mmol/L (136-145)
[2025-03-27] MEDS: hydrALAZINE HCL 20 MG/ML VL IV ONE (15:40)
--- NOTE | 2025-03-27 16:00 | DVHPN2 ---
Subjective in bed resting, confused Reviewed: H&P, Labs Changes from previous H/P or p: No Changes Eyes: No Pain, No Vision change, No Conjunctivae inflammation, No Eyelid inflammation, No Other, No Redness ENT: No Ear pain, No Ear discharge, No Nose pain, No Nose discharge, No Nose congestion, No Mouth pain, No Mouth swelling, No Throat pain, No Throat swelling, No Other Cardiovascular: No Chest Pain, No Palpitations, No Orthopnea, No Paroxysmal Noc. Dyspnea, No Edema, No Lt Headedness, No Other Respiratory: No Cough, No Dry, No Shortness of breath, No SOB with excertion, No Wheezing, No Hemoptysis, No Pleuritic Pain, No Sputum, No Other Gastrointestinal: No Nausea, No Vomiting, No Abdominal Pain, No Diarrhea, No Constipation, No Melena, No Hematochezia, No Other Genitourinary: No Dysuria, No Frequency, No Incontinence, No Hematuria, No Retention, No Other Musculoskeletal: other (left shoulder pain); No neck pain, No shoulder pain, No arm pain, No back pain, No hand pain, No leg pain, No foot pain Skin: No Rash, No Lesions, No Jaundice, No Bruising, No Other Objective Vitals Vital Signs Date Time Temp Pulse Resp B/P (MAP) Pulse Ox O2 Delivery O2 Flow Rate FiO2 03/27/25 15:40 167/59 03/27/25 13:46 98.8 79 15 97 98.8 03/27/25 08:00 Nasal Cannula* 2 28 Intake/Output Intake and Output 03/27/25 07:00 Intake Total 1860 ml Output Total 850 ml Balance 1010 ml Intake Oral 910 ml IV Total 950 ml Output Urine Total 850 ml General Appearance: Alert Lungs: Clear to auscultation Cardiovascular: Regular rate, Normal S1, Normal S2 Abdomen: Normal bowel sounds Medications Current Medications Medications Dose Ordered Sig/Manasa Route Start Time Stop Time Status Last Admin Dose Admin Docusate Sodium 100 mg BIDPRN PRN PO 03/24/25 18:00 Morphine Sulfate 2 mg Q4HPRN PRN IV 03/24/25 18:00 03/26/25 16:46 2 MG Nitroglycerin 0.4 mg Q5MINP PRN SL 03/24/25 18:00 Ceftriaxone Sodium 50 ml @ 100 mls/hr DAILY@09 IV 03/24/25 18:14 03/27/25 09:54 100 MLS/HR Acetaminophen/ Hydrocodone Bitart 1 tab Q6HPRN PRN PO 03/25/25 10:45 Acetaminophen 650 mg Q6HP PRN PO 03/25/25 10:45 Ondansetron HCl 4 mg Q6HPRN PRN IV 03/25/25 10:45 Sertraline HCl 100 mg DAILY PO 03/26/25 10:00 Amlodipine Besylate 10 mg DAILY PO 03/26/25 10:00 03/27/25 09:55 10 MG Trazodone HCl 100 mg HS PO 03/25/25 22:00 03/26/25 21:39 100 MG Sodium Chloride 1,000 ml @ 60 mls/hr [id number] IV 03/25/25 10:45 03/27/25 12:49 60 MLS/HR Laboratory Results Laboratory Tests 03/27/25 09:45 Chemistry Test 03/27/25 09:45 Calcium Level 9.3 mg/dL (8.7-10.4) Urinalysis Test 03/24/25 20:17 Urine Color Light-yellow (Yellow) Urine Clarity Clear (Clear) Urine pH 5.5 (5.0-9.0) Urine Specific [place] 1.018 (1.001-1.035) Urine Protein Negative (Negative) Urine Ketones 1+ (Negative) H Urine Blood Negative /uL (Negative) Urine Nitrite Negative (Negative) Urine Bilirubin Negative (Negative) Urine Urobilinogen Normal mg/dL (Negative) Urine Leukocyte Esterase Negative /uL (Negative) Urine RBC 1 /hpf (0 - 4) Urine Microscopic WBC < 1 /HPF (0-5) Urine Squamous Epithelial Cells Few /hpf (<5) Urine Bacteria None seen /hpf (None Seen) Urine Hyaline Casts Few /lpf (0 - 2) Urine Glucose Normal mg/dL (Normal) Microbiology Microbiology Date/Time Source Procedure Growth Status 03/24/25 20:17 Voided Urine Urine Culture - Final Complete 03/24/25 13:10 Blood Blood Culture - Preliminary NO GROWTH AFTER 72 HOURS OF INCUBATION. Resulted Assessment/Plan Assessment/Plan #1 left shoulder dislocation: s/p OR reduction #2 dementia: ss consult for snif #3 htn: hypertensive this morning, possible related to pain, will control pain today #4 depression/anxiety Not stable for transfer today due to uncontrolled blood pressure Plan discussed with: Patient Date of Service: Mar 27, 2025 Billing Provider: MITCHELL DARLING MD Common Visit Codes: [id number] INP/OBS CARE(HIGH) MITCHELL DARLING MD Mar 27, 2025 16:00
[2025-03-28] VITALS (8 sets, daily range): BP systolic 123–164; BP diastolic 39–74; PULSE 78–85; RESP 15–20; TEMP 98–98.7; O2SAT 89–97
--- NOTE | 2025-03-28 19:29 | DVHPN2 ---
Subjective in bed resting, confused Reviewed: H&P, Labs Changes from previous H/P or p: No Changes Eyes: No Pain, No Vision change, No Conjunctivae inflammation, No Eyelid inflammation, No Other, No Redness ENT: No Ear pain, No Ear discharge, No Nose pain, No Nose discharge, No Nose congestion, No Mouth pain, No Mouth swelling, No Throat pain, No Throat swelling, No Other Cardiovascular: No Chest Pain, No Palpitations, No Orthopnea, No Paroxysmal Noc. Dyspnea, No Edema, No Lt Headedness, No Other Respiratory: No Cough, No Dry, No Shortness of breath, No SOB with excertion, No Wheezing, No Hemoptysis, No Pleuritic Pain, No Sputum, No Other Gastrointestinal: No Nausea, No Vomiting, No Abdominal Pain, No Diarrhea, No Constipation, No Melena, No Hematochezia, No Other Genitourinary: No Dysuria, No Frequency, No Incontinence, No Hematuria, No Retention, No Other Musculoskeletal: other (left shoulder pain); No neck pain, No shoulder pain, No arm pain, No back pain, No hand pain, No leg pain, No foot pain Skin: No Rash, No Lesions, No Jaundice, No Bruising, No Other Objective Vitals Vital Signs Date Time Temp Pulse Resp B/P (MAP) Pulse Ox O2 Delivery O2 Flow Rate FiO2 03/28/25 16:30 98.4 83 18 164/74 (104) 93 98.4 03/28/25 08:00 Nasal Cannula* 2 28 Intake/Output Intake and Output 03/28/25 07:00 Intake Total 990 ml Output Total 700 ml Balance 290 ml Intake Oral 940 ml IV Total 50 ml Output Urine Total 700 ml General Appearance: Alert Lungs: Clear to auscultation Cardiovascular: Regular rate, Normal S1, Normal S2 Abdomen: Normal bowel sounds Medications Current Medications Medications Dose Ordered Sig/Manasa Route Start Time Stop Time Status Last Admin Dose Admin Docusate Sodium 100 mg BIDPRN PRN PO 03/24/25 18:00 Morphine Sulfate 2 mg Q4HPRN PRN IV 03/24/25 18:00 03/26/25 16:46 2 MG Nitroglycerin 0.4 mg Q5MINP PRN SL 03/24/25 18:00 Ceftriaxone Sodium 50 ml @ 100 mls/hr DAILY@09 IV 03/24/25 18:14 03/28/25 09:25 100 MLS/HR Acetaminophen/ Hydrocodone Bitart 1 tab Q6HPRN PRN PO 03/25/25 10:45 Acetaminophen 650 mg Q6HP PRN PO 03/25/25 10:45 Ondansetron HCl 4 mg Q6HPRN PRN IV 03/25/25 10:45 Sertraline HCl 100 mg DAILY PO 03/26/25 10:00 Amlodipine Besylate 10 mg DAILY PO 03/26/25 10:00 03/28/25 09:25 10 MG Trazodone HCl 100 mg HS PO 03/25/25 22:00 03/27/25 22:50 100 MG Sodium Chloride 1,000 ml @ 60 mls/hr [id number] IV 03/25/25 10:45 03/28/25 00:42 60 MLS/HR Laboratory Results Laboratory Tests 03/27/25 09:45 Urinalysis Test 03/24/25 20:17 Urine Color Light-yellow (Yellow) Urine Clarity Clear (Clear) Urine pH 5.5 (5.0-9.0) Urine Specific [place] 1.018 (1.001-1.035) Urine Protein Negative (Negative) Urine Ketones 1+ (Negative) H Urine Blood Negative /uL (Negative) Urine Nitrite Negative (Negative) Urine Bilirubin Negative (Negative) Urine Urobilinogen Normal mg/dL (Negative) Urine Leukocyte Esterase Negative /uL (Negative) Urine RBC 1 /hpf (0 - 4) Urine Microscopic WBC < 1 /HPF (0-5) Urine Squamous Epithelial Cells Few /hpf (<5) Urine Bacteria None seen /hpf (None Seen) Urine Hyaline Casts Few /lpf (0 - 2) Urine Glucose Normal mg/dL (Normal) Microbiology Microbiology Date/Time Source Procedure Growth Status 03/24/25 20:17 Voided Urine Urine Culture - Final Complete 03/24/25 13:10 Blood Blood Culture - Preliminary NO GROWTH AFTER 72 HOURS OF INCUBATION. Resulted Assessment/Plan Assessment/Plan #1 left shoulder dislocation: s/p OR reduction #2 dementia: ss consult for snif #3 htn: hypertensive this morning, possible related to pain, will control pain today #4 depression/anxiety stable to transfer to [facility] [place] Plan discussed with: Patient My Orders Orders - MITCHELL DARLING MD Procedure Category Date Status Time * Social Work Instructor CONS 03/28/25 Transmitted Consult Discharge DISCHARGE 03/28/25 Transmitted 14:17 Date of Service: Mar 28, 2025 Billing Provider: MITCHELL DARLING MD Common Visit Codes: [id number] INP/OBS CARE(HIGH) MITCHELL DARLING MD Mar 28, 2025 19:29
[2025-03-29 01:00] VITALS: BP 114/77; PULSE 80; RESP 15; TEMP 98.2; O2SAT 94
[2025-03-29 05:00] VITALS: BP 120/65; PULSE 82; RESP 15; TEMP 98; O2SAT 96
[2025-03-29 08:57] VITALS: BP 165/57; PULSE 85; RESP 16; TEMP 98.1; O2SAT 92
--- NOTE | 2025-04-05 05:40 | DVHDS2 ---
Discharge Summary Date of Admission Mar 24, 2025 at 17:49 Date of Discharge: Mar 29, 2025 Labs/Diagnostic Data: Laboratory Results Test 03/27/25 09:45 03/26/25 06:11 03/24/25 20:17 03/24/25 19:29 White Blood Count 5.4 10^3/uL (4.4-10.8) Red Blood Count 4.11 10^6/uL (4.0-5.20) Hemoglobin 12.2 g/dL (12.2-16.2) Hematocrit 36.2 % (36.0-46.0) Mean Corpuscular Volume 88.1 fL (80.0-100.0) Mean Corpuscular Hemoglobin 29.8 pg (28.0-32.0) Mean Corpuscular Hemoglobin Concent 33.8 g/dL (32.0-36.0) Red Cell Distribution Width 14.2 % (11.8-14.3) Platelet Count 223 10^3/uL (140-450) Mean Platelet Volume 7.3 fL (6.9-10.8) Neutrophils (%) (Auto) 68.9 % (37.0-80.0) Lymphocytes (%) (Auto) 21.0 % (10.0-50.0) Monocytes (%) (Auto) 8.0 % (0.0-12.0) Eosinophils (%) (Auto) 1.8 % (0.0-7.0) Basophils (%) (Auto) 0.3 % (0.0-2.0) Neutrophils # (Auto) 3.7 10 ^3/uL (1.6-8.6) Lymphocytes # (Auto) 1.1 10 ^3/uL (0.4-5.4) Monocytes # (Auto) 0.4 10 ^3/uL (0-1.3) Eosinophils # (Auto) 0.1 10 ^3/uL (0-0.8) Basophils # (Auto) 0 10 ^3/uL (0-0.2) Nucleated Red Blood Cells 0.2 % Sodium Level 145 mmol/L (136-145) Potassium Level 3.8 mmol/L (3.5-5.1) Chloride Level 111 mmol/L (98-107) Carbon Dioxide Level 24 mmol/L (20-31) Anion Gap 10 (5-15) Blood Urea Nitrogen 13 mg/dL (9-23) Creatinine 0.61 mg/dL (0.550-1.02) Glomerular Filtration Rate Calc 86 mL/min (>90) BUN/Creatinine Ratio 21.3 (10.0-20.0) Serum Glucose 122 mg/dL (74-106) Calcium Level 9.3 mg/dL (8.7-10.4) Total Bilirubin 1.3 mg/dL (0.2-1.0) Aspartate Amino Transferase (AST) 24 U/L (13-40) Alanine Aminotransferase (ALT) 15 U/L (7-40) Alkaline Phosphatase 58 U/L (46-116) Total Protein 6.3 g/dL (5.7-8.2) Albumin 4.1 g/dL (3.2-4.8) Urine Color Light-yellow (Yellow) Urine Clarity Clear (Clear) Urine pH 5.5 (5.0-9.0) Urine Specific [place] 1.018 (1.001-1.035) Urine Protein Negative (Negative) Urine Ketones 1+ (Negative) Urine Blood Negative /uL (Negative) Urine Nitrite Negative (Negative) Urine Bilirubin Negative (Negative) Urine Urobilinogen Normal mg/dL (Negative) Urine Leukocyte Esterase Negative /uL (Negative) Urine RBC 1 /hpf (0 - 4) Urine Microscopic WBC < 1 /HPF (0-5) Urine Squamous Epithelial Cells Few /hpf (<5) Urine Bacteria None seen /hpf (None Seen) Urine Hyaline Casts Few /lpf (0 - 2) Urine Glucose Normal mg/dL (Normal) Troponin I High Sensitivity 11 ng/L (</=34) Test 03/24/25 18:11 03/24/25 13:10 Thyroid Stimulating Hormone (TSH) 1.56 uIU/mL (0.55-4.78) Lactic Acid Level 0.7 mmol/L (0.4-2.0) Other Laboratory Tests 03/27/25 09:45 Brief Hx & Hospital Course: 89-year-old female with a history of dementia and hypertension presents to the ED with her granddaughter for evaluation of left shoulder pain following two separate fall events. Per granddaughter, the patient was found on the floor on Saturday and again between 5:00 AM and 10:00 AM today. On the most recent fall, she attempted to assist the patient who complained of left shoulder pain and curled into a ball. EMS was called and brought her in.Patient has had recent changes in mental status and increased wandering behavior, per granddaughter. She was recently prescribed a 2-week course of Bactrim DS for a urinary tract infection, with one week completed. No known surgical history. In the ED, ortho PA was consulted. Attempt at shoulder reduction was made but unsuccessful. No chest pain, shortness of breath, or other systemic symptoms noted at this time.ED Data Reviewed: CBC: WNL BMP: Creatinine 1.3, glucose 154 Lactate: 0.7 CT Brain: No acute findings Left Shoulder X-ray: Anterior glenohumeral dislocation, no fracture, osteopenia, soft tissue swelling Ortho at bedside, attempted closed reduction, will admit for syncope workup Had reduction in OR and did well post op with no complicatoins transferred to prison Condition at Discharge: Good Final Diagnosis/Problems List Left shoulder fracture dislocation Discharge Disposition: [facility] Facility Discharge Instruct/Medications Diet: Regular Activity: No Restrictions, As Tolerated Follow Up/Referral: PCP in 7 days Medications: home medications Discharge Statement: "Patient was advised to return to the ER or call 911 if any headaches, dizziness, shortness of breath, chest pain, abdominal pain, bleeding, fevers, or worsening of medical condition. Patient was counseled about treatment plan, medications, possible side effects, patientverbalized understanding. All questions were answered to the best of my ability. This discharge took greater then 30 minutes in planning, reviewing documentation, counseling the patient, and discussing with other team members." ASSESSMENT ASSESSMENT Assessment Left shoulder fracture dislocation Date of Service: Mar 29, 2025 Billing Provider: MITCHELL DARLING MD Common Visit Codes: 63539-JZN/OBS DISCH DAY >30min MITCHELL DARLING MD Apr 05, 2025 05:40
== END 2025-03-29 12:50 | DRG 562 ==
LOC: ER 11:51 → EDBD 11:51 → OVERFLOW 17:49 → WEST WING 22:20
PROVIDERS: ADMIT Hospitalist; ATTEND Hospitalist
PROC: 0RSKXZZ Reposition Left Shoulder Joint, External Approach (ICD-10-PCS; principal; 2025-03-26 07:10)
DX: S42.252A Displaced fracture of greater tuberosity of left humerus, initial encounter for closed fracture (principal); G93.41 Metabolic encephalopathy; N39.0 Urinary tract infection, site not specified; I16.0 Hypertensive urgency; F03.90 Unspecified dementia, unspecified severity, without behavioral disturbance, psychotic disturbance, mood disturbance, and anxiety; I10 Essential (primary) hypertension; F41.9 Anxiety disorder, unspecified; F32.A Depression, unspecified; W18.39XA Other fall on same level, initial encounter; Y93.89 Activity, other specified; Y92.89 Other specified places as the place of occurrence of the external cause; Y99.8 Other external cause status
CPT/HCPCS: 36415; 70450; 73020; 73030; 73090; 76000; 80048; 80053; 81001; 83605; 84443; 84484; 85025; 87040; 87086; 93005; 93306; 93886; 97116; 97163; 97530; G0378; J2003; J2250; J2704